=== PATIENT | male | born 1960 | race Caucasian/White ===

== ENCOUNTER 2017-01-17 08:31 | Outpatient (CLI) | payer BC ==
[2017-01-17 09:13] LABS: Hemoglobin A1c 5.9 % (4.0-6.0)
[2017-01-17 09:45] LABS: ALT (SGPT) 32 U/L (8-55); AST (SGOT) 24 U/L (5-34); Alkaline Phosphatase 62 U/L (40-150); Anion Gap 13 mmol/L (10-20); BUN (Urea Nitrogen) 16 mg/dL (8.4-25.7); Bilirubin, Total 0.9 mg/dL (0.2-1.2); Calc. Creatinine Clearance 0 mL/min (70-130); Calcium 9.1 mg/dL (7.8-10.44); Carbon Dioxide 25 mmol/L (22-29); Cardiac Risk 3.5 (Less than 4.5); Chloride 103 mmol/L (98-107); Cholesterol 152 mg/dl (< 200 Desired); Estimated GFR-MDRD 70; Globulin 2.9 g/dL (2.4-3.5); Glucose 119 mg/dL (70-105); HDL Cholesterol 44 mg/dL (>60 Neg Risk); LDL Cholesterol, Calculated 68 mg/dL; Potassium 4.5 mmol/L (3.5-5.1); Protein, Total 6.9 g/dL (6.0-8.3); Sodium 136 mmol/L (136-145); Triglycerides 198 mg/dL (Less than 150)
[2017-01-17 09:57] LABS: #Basophils 0.1 thou/uL (0.0-0.2); #Eosinphils 0.2 thou/uL (0.0-0.7); #Lymphocytes 3.1 thou/uL (1.20-3.40); #Monocytes 0.7 thou/uL (0.11-0.59); #Neutrophils 5.4 thou/uL (1.40-6.50); %Basophils 1.3 % (0.0-1.0); %Eosinophils 1.9 % (0.0-10.0); %Lymphocytes 32.8 % (21.0-51.0); %Monocytes 7.7 % (0.0-10.0); %Neutrophils 56.4 % (42.0-75.0); Hemoglobin 17.9 g/dL (14.0-18.0); Mean Corpuscular HGB CONC 31.9 g/dL (32.0-36.0); Mean Corpuscular Hemoglobin 30.1 pg (27.0-31.0); Mean Corpuscular Volume 94.2 fl (80.0-94.0); Mean Platelet Volume 8.8 fL (7.4-10.4); Platelet Count 237 thou/uL (130-400); RBC Distribution Width 10.7 % (11.5-14.5); Red Blood Cell (RBC) Count 5.95 mill/uL (4.70-6.10); White Blood Cell (WBC) Count 9.5 thou/uL (4.8-10.8)
[2017-01-17 10:02] LABS: PSA-Symptomatic (DIAGNOSTIC) 1.03 ng/mL (0-4.0); Thyroid Stimulating Hormone 2.1448 uIU/mL (0.35-4.94); Vitamin D, 25 Hydroxy 29.5 ng/ml (> 30.0)
--- NOTE | 2017-01-17 10:48 | ULT ---
THYROID ULTRASOUND: Date: 01-17-17 History: Possible thyroid enlargement, evaluate for thyroid nodule. Technique: Multiplanar grayscale sonographic imaging of the thyroid gland obtained. FINDINGS: The left lobe measures 1.4 x 2.3 x 1.0 cm. Thyroid isthmus measures 4 mm in AP dimension. Right lobe of the thyroid gland measures 1.7 x 3.4 x 1.3 cm. No thyroid nodule noted. IMPRESSION: Unremarkable thyroid ultrasound. POS: [facility]
[2017-01-17 17:05] LABS: Albumin (w/Testosterone Panel) 4.1 g/dL
[2017-01-17 17:31] LABS: Sex Hormone Binding Globulin 30.9 nmol/L (11-78); Testosterone, Total 1002.3 ng/dL (221-716)
[2017-01-17 18:17] LABS: Creatinine, Urine 109.08 mg/dL (63-166); Microalbumin Urine 3.4 mg/dL (0.5-50.0); Microalbumin/Creat Ratio 31.2 mg/g (Less than 30)
== END 2017-01-17 08:32 | disposition home or self-care (01) ==
LOC: MADLAB 08:31
PROVIDERS: ATTEND Internal Medicine Endocrinology, Diabetes & Metabolism
DX: E04.1 Nontoxic single thyroid nodule (principal); E03.5 Myxedema coma; E55.9 Vitamin D deficiency, unspecified; E78.2 Mixed hyperlipidemia; E11.21 Type 2 diabetes mellitus with diabetic nephropathy; E23.0 Hypopituitarism; Z79.899 Other long term (current) drug therapy
CPT/HCPCS: 36415; 76536; 80053; 80061; 82043; 82306; 83036; 84153; 84270; 84403; 84443; 85025

== ENCOUNTER 2018-10-10 12:40 | Emergency (ER) | payer BC ==
[2018-10-10] MEDS ORDERED: Sodium Chloride 0.9% 1,000 ML BAG ONE (12:41)
[2018-10-10 13:31] LABS: #Basophils 0.1 thou/uL (0.0-0.2); #Eosinphils 0.1 thou/uL (0.0-0.7); #Lymphocytes 3.9 thou/uL (1.20-3.40); #Monocytes 1.4 thou/uL (0.11-0.59); #Neutrophils 9.4 thou/uL (1.40-6.50); %Basophils 0.7 % (0.0-1.0); %Eosinophils 0.6 % (0.0-10.0); %Lymphocytes 26.1 % (21.0-51.0); %Monocytes 9.5 % (0.0-10.0); Hemoglobin 16.9 g/dL (14.0-18.0); Mean Corpuscular HGB CONC 32.5 g/dL (32.0-36.0); Mean Corpuscular Hemoglobin 29.8 pg (27.0-31.0); Mean Corpuscular Volume 91.9 fL (78.0-98.0); Mean Platelet Volume 7.1 fL (7.4-10.4); Platelet Count 289 thou/uL (130-400); RBC Distribution Width 11.9 % (11.5-14.5); Red Blood Cell (RBC) Count 5.68 mill/uL (4.70-6.10)
[2018-10-10 13:48] LABS: ALT (SGPT) 31 U/L (8-55); AST (SGOT) 32 U/L (5-34); Albumin 4.8 g/dL (3.5-5.0); Alkaline Phosphatase 73 U/L (40-150); Anion Gap 17 mmol/L (10-20); BUN (Urea Nitrogen) 53 mg/dL (8.4-25.7); Bilirubin, Total 1.3 mg/dL (0.2-1.2); Calc. Creatinine Clearance 0 mL/min (70-130); Calcium 10.8 mg/dL (7.8-10.44); Carbon Dioxide 25 mmol/L (22-29); Chloride 102 mmol/L (98-107); Estimated GFR-MDRD 14; Globulin 2.9 g/dL (2.4-3.5); Glucose 123 mg/dL (70-105); Magnesium 2.1 mg/dL (1.6-2.6); Potassium 4.7 mmol/L (3.5-5.1); Protein, Total 7.7 g/dL (6.0-8.3); Sodium 139 mmol/L (136-145)
--- NOTE | 2018-10-10 14:33 | CT ---
CT BRAIN WITHOUT CONTRAST: HISTORY: Dizziness. FINDINGS: No evidence of infarct, hemorrhage, midline shift, or abnormal extraaxial fluid collection is seen. The ventricular size is normal, and the basilar cisterns are patent. The bony calvarium is intact. The visualized paranasal sinuses and mastoid air cells are well aerated. IMPRESSION: No CT evidence of acute intracranial process. POS: [facility]
[2018-10-10 16:14] LABS: Bilirubin Small (Negative); Blood, Urine Negative (Negative); Clarity Hazy (Clear); Glucose, Urine (Dipstick) Negative (Negative); Leukocyte Negative (Negative); Nitrite Negative (Negative); Protein, Urine (Dipstick) 30 mg/dL (Neg-Trace); Specific Gravity, Urine 1.025 (1.005-1.030); Urobilinogen 0.2 mg/dL (0.2-1.0)
[2018-10-10 16:19] LABS: Bacteria/HPF 1+ HPF (None Seen); RBC/HPF 0-3 HPF (0-3); WBC/HPF 0-3 HPF (0-3)
[2018-10-10 16:20] LABS: Crystals/HPF RARE CA OXALATE HPF (Negative)
== END 2018-10-10 18:30 | disposition short-term general hospital (02) ==
LOC: MADERS 12:40
DX: I95.9 Hypotension, unspecified (principal); N17.9 Acute kidney failure, unspecified; E83.52 Hypercalcemia; I45.10 Unspecified right bundle-branch block; M19.90 Unspecified osteoarthritis, unspecified site; E11.9 Type 2 diabetes mellitus without complications; E78.5 Hyperlipidemia, unspecified; I10 Essential (primary) hypertension; Z79.84 Long term (current) use of oral hypoglycemic drugs; Z79.82 Long term (current) use of aspirin; Z79.899 Other long term (current) drug therapy
CPT/HCPCS: 70450; 80053; 81003; 81015; 83605; 83735; 84443; 84484; 85025; 93005; J7050

== ENCOUNTER 2021-01-13 11:17 | Emergency (ER) | payer BC ==
[2021-01-13] MEDS ORDERED: Lactated Ringer's 1,000 ML ONE ×2 (12:14→14:38)
[2021-01-13] MEDS ORDERED: Ipratropium Bromide 2.5 ml Neb ONE (12:14)
[2021-01-13] MEDS ORDERED: Albuterol Sulfate 2.5 mg/0.5 ml Neb ONE (12:14)
[2021-01-13 12:42] LABS: #Lymphocytes 0.6 thou/uL (1.20-3.40); #Monocytes 0.4 thou/uL (0.11-0.59); #Neutrophils 7.5 thou/uL (1.40-6.50); %Basophils 0.3 % (0.0-1.0); %Lymphocytes 7.4 % (21.0-51.0); %Monocytes 4.7 % (0.0-10.0); %Neutrophils 87.7 % (42.0-75.0); Hemoglobin 20.4 g/dL (14.0-18.0); Mean Corpuscular Volume 93.6 fL (78.0-98.0); Mean Platelet Volume 7.9 fL (7.4-10.4); Platelet Count 319 thou/uL (130-400); RBC Distribution Width 11.8 % (11.5-14.5); Red Blood Cell (RBC) Count 6.81 mill/uL (4.70-6.10); White Blood Cell (WBC) Count 8.6 thou/uL (4.8-10.8)
[2021-01-13 12:49] LABS: ALT (SGPT) 17 U/L (8-55); AST (SGOT) 28 U/L (5-34); Albumin 3.6 g/dL (3.4-4.8); Alkaline Phosphatase 96 U/L (40-110); Anion Gap 18 mmol/L (10-20); BUN (Urea Nitrogen) 40 mg/dL (8.4-25.7); Bilirubin, Total 1.4 mg/dL (0.2-1.2); CK (CPK) 149 U/L (30-200); Calc. Creatinine Clearance 0 mL/min (70-130); Calcium 9.6 mg/dL (7.8-10.44); Carbon Dioxide 25 mmol/L (23-31); Chloride 100 mmol/L (98-107); Globulin 3.7 g/dL (2.4-3.5); Glucose 196 mg/dL (80-115); Potassium 4.3 mmol/L (3.5-5.1); Protein, Total 7.3 g/dL (5.8-8.1); Sodium 139 mmol/L (136-145)
[2021-01-13] MEDS ORDERED: Iopamidol 370 76% 125 ML VIAL FS ONE (13:17)
[2021-01-13] MEDS ORDERED: Sodium Chloride 0.9% 1,000 ML ONE (16:13)
[2021-01-13] MEDS ORDERED: Albuterol Sulfate 2.5 mg/3 ml Neb ONE (22:43)
[2021-01-14 06:21] LABS: #Lymphocytes 0.8 thou/uL (1.20-3.40); #Monocytes 0.4 thou/uL (0.11-0.59); #Neutrophils 6.5 thou/uL (1.40-6.50); %Basophils 0.2 % (0.0-1.0); %Lymphocytes 10.1 % (21.0-51.0); %Monocytes 5.6 % (0.0-10.0); %Neutrophils 84.1 % (42.0-75.0); Hemoglobin 17.7 g/dL (14.0-18.0); Mean Corpuscular HGB CONC 31.9 g/dL (32.0-36.0); Mean Corpuscular Hemoglobin 29.9 pg (27.0-31.0); Mean Corpuscular Volume 93.6 fL (78.0-98.0); Mean Platelet Volume 7.2 fL (7.4-10.4); Platelet Count 408 thou/uL (130-400); RBC Distribution Width 11.4 % (11.5-14.5); Red Blood Cell (RBC) Count 5.93 mill/uL (4.70-6.10); White Blood Cell (WBC) Count 7.8 thou/uL (4.8-10.8)
[2021-01-14 06:33] LABS: ALT (SGPT) 15 U/L (8-55); AST (SGOT) 24 U/L (5-34); Albumin 3.2 g/dL (3.4-4.8); Alkaline Phosphatase 80 U/L (40-110); Anion Gap 16 mmol/L (10-20); BUN (Urea Nitrogen) 42 mg/dL (8.4-25.7); Bilirubin, Total 0.9 mg/dL (0.2-1.2); Calc. Creatinine Clearance 0 mL/min (70-130); Calcium 9.2 mg/dL (7.8-10.44); Carbon Dioxide 23 mmol/L (23-31); Chloride 105 mmol/L (98-107); Globulin 3.3 g/dL (2.4-3.5); Glucose 256 mg/dL (80-115); Potassium 3.7 mmol/L (3.5-5.1); Protein, Total 6.5 g/dL (5.8-8.1); Sodium 140 mmol/L (136-145)
[2021-01-14] MEDS ORDERED: Dexamethasone 10 MG/ML VIAL ONE (07:58)
[2021-01-14] MEDS ORDERED: Insulin Regular 300 UNITS/3 ML VIAL ONE (08:26)
== END 2021-01-14 20:37 | disposition short-term general hospital (02) ==
LOC: MADERS 11:17
DX: U07.1 COVID-19 (principal); J12.82 Pneumonia due to coronavirus disease 2019; R74.02 Elevation of levels of lactic acid dehydrogenase [LDH]; E86.0 Dehydration; E11.9 Type 2 diabetes mellitus without complications; E78.00 Pure hypercholesterolemia, unspecified; I10 Essential (primary) hypertension; M19.90 Unspecified osteoarthritis, unspecified site; Z79.82 Long term (current) use of aspirin; Z79.84 Long term (current) use of oral hypoglycemic drugs; Z79.899 Other long term (current) drug therapy
CPT/HCPCS: 36415; 36416; 71045; 71275; 80053; 82550; 83605; 83735; 83880; 84484; 85025; 85379; 93005; 96374; J1100; J1815; J7050; J7120; J7611; Q9967

== ENCOUNTER 2021-02-18 08:53 | Outpatient (CLI) | payer BC ==
[2021-02-18 09:13] LABS: Hemoglobin 16.2 g/dL (14.0-18.0); Mean Corpuscular HGB CONC 31.6 g/dL (32.0-36.0); Mean Corpuscular Hemoglobin 29.7 pg (27.0-31.0); Mean Corpuscular Volume 93.9 fL (78.0-98.0); Mean Platelet Volume 6.8 fL (7.4-10.4); Platelet Count 345 thou/uL (130-400); RBC Distribution Width 11.5 % (11.5-14.5); Red Blood Cell (RBC) Count 5.46 mill/uL (4.70-6.10); White Blood Cell (WBC) Count 9.4 thou/uL (4.8-10.8)
[2021-02-18 09:41] LABS: ALT (SGPT) 19 U/L (8-55); AST (SGOT) 17 U/L (5-34); Albumin 3.9 g/dL (3.4-4.8); Alkaline Phosphatase 79 U/L (40-110); Anion Gap 14 mmol/L (10-20); BUN (Urea Nitrogen) 25 mg/dL (8.4-25.7); Bilirubin, Total 0.7 mg/dL (0.2-1.2); Calc. Creatinine Clearance 0 mL/min (70-130); Calcium 10.1 mg/dL (7.8-10.44); Carbon Dioxide 27 mmol/L (23-31); Cardiac Risk 3.6 (Less than 4.5); Chloride 106 mmol/L (98-107); Cholesterol 131 mg/dl (< 200 Desired); Globulin 3.1 g/dL (2.4-3.5); Glucose 116 mg/dL (80-115); HDL Cholesterol 36 mg/dL (>60 Neg Risk); LDL Cholesterol, Calculated 62 mg/dL; Potassium 5.3 mmol/L (3.5-5.1); Sodium 142 mmol/L (136-145); Triglycerides 165 mg/dL (Less than 150)
[2021-02-18 17:03] LABS: Hemoglobin A1c 7.7 % (4.0-6.0)
[2021-02-18 17:25] LABS: Albumin (w/Testosterone Panel) 3.9 g/dL
[2021-02-18 17:44] LABS: Creatinine, Urine 153.37 mg/dL (63-166); Microalbumin Urine 5.7 mg/dL (0.5-50.0); Microalbumin/Creat Ratio 37.2 mg/g (Less than 30)
[2021-02-18 17:51] LABS: Sex Hormone Binding Globulin 46.6 nmol/L (11-78); Testosterone, Free 35.5 pg/mL (47-244); Testosterone, Total 223.5 ng/dL (221-716)
[2021-02-20 08:38] LABS: % Free PSA 42.9 % (.); Total PSA 1.4 ng/mL (0.0-4.0)
== END 2021-02-18 08:54 | disposition home or self-care (01) ==
LOC: MADLAB 08:53
PROVIDERS: ATTEND Internal Medicine Endocrinology, Diabetes & Metabolism
DX: E11.65 Type 2 diabetes mellitus with hyperglycemia (principal); E29.1 Testicular hypofunction
CPT/HCPCS: 36415; 80053; 80061; 82043; 83036; 84153; 84154; 84270; 84403; 85027

== ENCOUNTER 2021-10-18 12:47 | Emergency (ER) | payer BC ==
[2021-10-18] MEDS ORDERED: Cephalexin 250 MG CAP ONE (13:31)
[2021-10-18] MEDS ORDERED: Bacitracin 1 PK ONE (13:31)
[2021-10-18] MEDS ORDERED: Lidocaine 1% (PF) 30 ML VIAL ONE (13:31)
[2021-10-18] MEDS ORDERED: cefTRIAXone\\ROCEPHIN 1 GM VIAL ONE (14:05)
[2021-10-18] MEDS ORDERED: HYDROcodone/Acetaminophen 5/325 mg Tablet ONE (15:09)
[2021-10-18] MEDS ORDERED: Orphenadrine Citrate 60 MG/2 ML VIAL ONE (15:10)
== END 2021-10-18 15:29 | disposition short-term general hospital (02) ==
LOC: MADERS 12:47
DX: S62.635B Displaced fracture of distal phalanx of left ring finger, initial encounter for open fracture (principal); S32.020A Wedge compression fracture of second lumbar vertebra, initial encounter for closed fracture; I10 Essential (primary) hypertension; E11.9 Type 2 diabetes mellitus without complications; E78.00 Pure hypercholesterolemia, unspecified; M19.90 Unspecified osteoarthritis, unspecified site; W11.XXXA Fall on and from ladder, initial encounter; Z79.82 Long term (current) use of aspirin; Z79.84 Long term (current) use of oral hypoglycemic drugs; Z79.899 Other long term (current) drug therapy
CPT/HCPCS: 36416; 70450; 72131; 99282; J0696; J2001; J2360